=== PATIENT | male | born 1965 | race Caucasian/White ===

== ENCOUNTER 2017-08-29 21:14 | Emergency (ER) | payer MEDICAID ==
[2017-08-29 21:43] VITALS: BP 146/108
[2017-08-29] MEDS ORDERED: Diphtheria,Pertussis(Acell),Tetanus Vaccine 0.5 ML Syringe IM ONE (21:58)
--- NOTE | 2017-08-29 22:07 | EDM.PDOC ---
ED HPI GENERAL MEDICAL PROBLEM - General Chief Complaint: Upper Extremity Injury/Pain Stated Complaint: smashed finger Time Seen by Provider: 08/29/17 21:43 Source of Information: Reports: Patient History Limitations: Reports: No Limitations - History of Present Illness INITIAL COMMENTS - FREE TEXT/NARRATIVE: This patient is a 52 year old male that presents to the ER. Patient reports that he was sawing with a saw and hit his left 2nd digit tip finger with saw and into fence. Patient reports having a laceration to the left distal 2nd finger and believes his finger may be broken. Patient sensory/motor function intact. Neurovascular intact. Pulses +2, cap refill < 2 sec. Patient denies any other injuries. Onset: Today Onset Date: 08/29/17 Location: Reports: Upper Extremity, Left Severity: Mild Improves with: Reports: None Worsens with: Reports: None Associated Symptoms: Denies: Confusion, Chest Pain, Cough, cough w sputum, Diaphoresis, Fever/Chills, Headaches, Loss of Appetite, Malaise, Nausea/Vomiting , Rash, Seizure, Shortness of Breath, Syncope, Weakness Treatments [employer]: Reports: Dressing(s) Left Hand Pain Score (Numeric/FACES): 7 - Related Data Allergies Allergy/AdvReac Type Severity Reaction Status Date / Time No Known Allergies Allergy Verified 08/23/16 13:02 Home Meds: Home Meds Pantoprazole [Protonix] 40 mg PO DAILY 03/02/14 [History] Aspirin 325 mg PO DAILY 08/05/16 [History] Lisinopril 5 mg PO DAILY 08/05/16 [History] Metoprolol Succinate 12.5 mg PO DAILY 08/05/16 [History] atorvaSTATin Calcium [Atorvastatin Calcium] 10 mg PO DAILY 08/05/16 [History] Naproxen Sodium [Aleve] 220 mg PO DAILY PRN 08/21/16 [History] Cholecalciferol (Vitamin D3) [Vitamin D] 5,000 unit PO DAILY 08/23/16 [History] Past Medical History - Past Health History Medical/Surgical History: Denies Medical/Surgical History Social & Family History - Tobacco Use Smoking Status *Q: Never Smoker Years of Tobacco use: 4 Second Hand Smoke Exposure: No - Alcohol Use Days Per Week of Alcohol Use: 0 - Recreational Drug Use Recreational Drug Use: No Review of Systems - Review of Systems Review Of Systems: See Below Constitutional: Reports: No Symptoms Eyes: Reports: No Symptoms Ears: Reports: No Symptoms Nose: Reports: No Symptoms Mouth/Throat: Reports: No Symptoms Respiratory: Reports: No Symptoms Cardiovascular: Reports: No Symptoms GI/Abdominal: Reports: No Symptoms Genitourinary: Reports: No Symptoms Musculoskeletal: Reports: Other (left 2nd digit finger pain, laceration. ) Skin: Reports: Bruising (left 2nd digit tip.), Wound (laceration left 2nd digit. ) Neurological: Reports: No Symptoms Psychiatric: Reports: No Symptoms ED EXAM, GENERAL - Physical Exam Exam: See Below Exam Limited By: No Limitations General Appearance: Alert, WD/WN, No Apparent Distress Respiratory/Chest: No Respiratory Distress, Lungs Clear, Normal Breath Sounds, No Accessory Muscle Use Cardiovascular: Normal Peripheral Pulses, Regular Rate, Rhythm, No Edema, No Gallop, No JVD, No Murmur, No Rub Peripheral Pulses: 2+: Radial (L), Radial (R) Extremities: No Pedal Edema, Normal Capillary Refill, Other (Pain, tenderness, swelling, eccyhmosis, laceration left 2nd digit tip. ) Neurological: Alert, Oriented Psychiatric: Normal Affect, Normal Mood Skin Exam: Warm, Dry, Ecchymosis (left 2nd digit tip. ), Wound/Incision ( laceration left 2nd digit tip. ) ED TRAUMA EXTREMITY PROCEDURES - Laceration/Wound Repair Left Distal Finger Lac/Wound Length In cm: 3 Appearance: Subcutaneous Distal NVT: Neuro & Vascular Intact, No Tendon Injury Anesthetic Type: Digital Local Anesthesia - Lidocaine (Xylocaine): 1% Plain Local Anesthesia - Bupivicaine (Marcaine): 0.5% Plain Local Anesthetic Volume: 4cc Skin Prep: Chlorhexidine (Hibiciens) Exploration/Debridement/Repair: Wound Explored, In a Bloodless Field, Explored to Base, Moderate Debridement, No Foreign Material Found Suture Size: other (5-0) # of Sutures: 6 Suture Type: Silk, Nylon Tetanus Status Addressed: Yes Complications: No - Splinting Left 2nd Digit Splint Site: LEFT 2ND DIGIT FINGER Pre-Procedure NV Status: Normal Post-Procedure NV Status: Normal Splint Material: Metal Applied & Form Fitted By: Nurse Provider Post-Splint Application NV Check: NV Status Normal, Good Position Complications: No Course - Vital Signs Last Recorded V/S: Last Vital Signs Temp 98.5 F 08/29/17 21:40 Pulse 100 08/29/17 21:40 Resp 18 08/29/17 21:40 BP 146/108 H 08/29/17 21:40 Pulse Ox 92 L 08/29/17 21:40 - Orders/Labs/Meds Orders: Active Orders 24 hr Category Date Time Status Vaccines to be Administered [RC] PER UNIT ROUTINE Care 08/29/17 22:00 Active Fingers Second Digit Lt F1 [CR] Stat Exams 08/29/17 21:50 Taken Meds: Medications Discontinued Medications Generic Name Dose Route Start Last Admin Trade Name Freq PRN Reason Stop Dose Admin Bupivacaine HCl 10 ml 08/30/17 02:19 08/30/17 02:26 Sensorcaine-Mpf 0.5% INJECT 08/30/17 02:20 10 ml ONETIME ONE Administration Cefazolin Sodium 1 gm 08/29/17 22:23 08/30/17 02:26 Ancef IVPUSH 08/29/17 22:24 1 gm ONETIME ONE Administration Cefazolin Sodium Confirm 08/30/17 02:12 08/30/17 02:26 Ancef Administered 08/30/17 02:13 Not Given Dose 1 gm .ROUTE .STK-MED ONE Diphtheria/Tetanus/Acell Pertussis 0.5 ml 08/29/17 21:58 08/29/17 22:06 Adacel IM 08/29/17 21:59 0.5 ml .ONCE ONE Administration Lidocaine HCl 20 ml 08/30/17 02:53 08/30/17 03:45 Xylocaine 1% INJECT 08/30/17 02:54 20 ml ONETIME ONE Administration - Radiology Interpretation Free Text/Narrative:: left 2nd digit: Distal phalanx fracture. No dislocation. Departure - Departure Time of Disposition: 03:47 Disposition: Home, Self-Care 01 Condition: Fair Clinical Impression: Laceration of finger Qualifiers: Encounter type: initial encounter Finger: index finger Damage to nail status: with damage Foreign body presence: without foreign body Laterality: left Qualified Code(s): S61.311A - Laceration without foreign body of left index finger with damage to nail, initial encounter Phalanx, distal fracture of finger Qualifiers: Encounter type: initial encounter Finger: index finger Fracture type: open Fracture alignment: displaced Laterality: left Qualified Code(s): S62.631B - Displaced fracture of distal phalanx of left index finger, initial encounter for open fracture - Discharge Information Instructions: Finger Fracture, [id number], Elbow Dislocation, [id number], Nail Bed Injury, [id number] Referrals: Ajit Gray MD [Primary Care Provider] - Forms: ED Department Discharge Additional Instructions: Followup with orthopedic by calling [facility] Return to the ER for worsening of condition or any emergent concerns Wash gently with soap and water twice a day, rinse, pat dry. Keep clean, dry covered. Finger splint Bactrim DS 1 pill twice a day for 10 days #20 no refill [place] 5/325 mg 1-2 pills every 4-6 hours as needed for pain #12 no refill - My Orders Last 24 Hours: My Active Orders 08/29/17 21:50 Fingers Second Digit Lt F1 [CR] Stat 08/29/17 22:00 Vaccines to be Administered [RC] PER UNIT ROUTINE - Assessment/Plan Last 24 Hours: My Active Orders 08/29/17 21:50 Fingers Second Digit Lt F1 [CR] Stat 08/29/17 22:00 Vaccines to be Administered [RC] PER UNIT ROUTINE Plan: PLEASE SEE RN NOTE FOR PFSH.
[2017-08-29] MEDS ORDERED: ceFAZolin 1 GM Vial IVPUSH ONE (22:23)
[2017-08-30] MEDS ORDERED: ceFAZolin 1 GM Vial ONE (02:12)
[2017-08-30] MEDS ORDERED: Bupivacaine 0.5% 10 ML SDV INJECT ONE (02:19)
[2017-08-30] MEDS ORDERED: Lidocaine 1% 20 ML MDV INJECT ONE (02:53)
== END 2017-08-30 04:05 | disposition home or self-care (01) ==
LOC: CC.ED 21:14
DX: S62.631B Displaced fracture of distal phalanx of left index finger, initial encounter for open fracture (principal); Z79.82 Long term (current) use of aspirin; Z79.899 Other long term (current) drug therapy; W31.2XXA Contact with powered woodworking and forming machines, initial encounter; Z23 Encounter for immunization
CPT/HCPCS: 12002; 73140; 90471; 90715; 96374; 99283; J0690